=== PATIENT | male | born 1950 | race Caucasian/White ===

== ENCOUNTER 2021-02-04 00:34 | Emergency (ER) | payer MEDICARE ==
[2021-02-04 01:26] LABS: HEMOGLOBIN 13.6 gm/dl (14.0-17.5); RED BLOOD COUNT 4.65 M/UL (4.20-5.50); WHITE BLOOD COUNT 8.6 K/UL (4.5-11.0)
[2021-02-04 01:48] LABS: BUN/CREATININE RATIO 17 (0-10)
== END 2021-02-04 05:10 | disposition home or self-care (01) ==
LOC: ER1 00:34
PROVIDERS: Family Medicine
DX: E11.65 Type 2 diabetes mellitus with hyperglycemia (principal); R07.9 Chest pain, unspecified; R10.30 Lower abdominal pain, unspecified; K80.80 Other cholelithiasis without obstruction; E78.5 Hyperlipidemia, unspecified; Z95.1 Presence of aortocoronary bypass graft; Z79.82 Long term (current) use of aspirin
CPT/HCPCS: 71045; 80053; 81001; 82550; 82553; 83690; 83874; 84484; 85025; 93005; 96374; 96375; 96376; 99285; J2270; J2405

== ENCOUNTER → 2021-04-07 | Outpatient (CLI) | payer MEDICARE, OTHER | LOC: HEART 5 07:59 | DX: I25.10 Atherosclerotic heart disease of native coronary artery without angina pectoris (principal); I07.1 Rheumatic tricuspid insufficiency; I35.8 Other nonrheumatic aortic valve disorders | CPT/HCPCS: 93306 ==

== ENCOUNTER → 2021-04-14 | Outpatient (CLI) | payer MEDICARE, OTHER | LOC: HEART 5 07:42 | DX: R07.89 Other chest pain (principal); R94.39 Abnormal result of other cardiovascular function study | CPT/HCPCS: 78452; A9502; J2785 ==

== ENCOUNTER 2021-05-23 21:36 | Emergency (ER) | payer MEDICARE, OTHER | END 2021-05-24 01:26 | disposition left against medical advice (07) | LOC: ER1 21:36 | DX: Z53.21 Procedure and treatment not carried out due to patient leaving prior to being seen by health care provider (principal) | CPT/HCPCS: 93005 ==

== ENCOUNTER 2021-09-01 11:25 | Inpatient (IN) | payer MEDICARE, OTHER ==
[~2021-09-01] VITALS: Ht 175.3 cm; Wt 117.0 kg
[~2021-09-01 11:25] MED LIST: DOXYCYCLINE HY100 M2 PO
[2021-09-01 12:24] LABS: HEMOGLOBIN 15.3 gm/dl (14.0-17.5); RED BLOOD COUNT 5.15 M/UL (4.20-5.50); WHITE BLOOD COUNT 6.5 K/UL (4.5-11.0)
[2021-09-01 13:03] LABS: BUN/CREATININE RATIO 17 (0-10)
[2021-09-01] MEDS ORDERED: PROAIR DIGIHAL90 MCG INH (14:00)
[2021-09-01] MEDS ORDERED: METFORMIN HCL500 M2 PO (14:01)
[2021-09-01] MEDS ORDERED: PLAVIX75 MG PO (14:01)
[2021-09-01] MEDS ORDERED: CARVEDILOL3.125 MG PO (14:02)
[2021-09-01] MEDS ORDERED: FUROSEMIDE20 MG PO (14:02)
[2021-09-01] MEDS ORDERED: ATORVASTATIN CA80 MG PO (14:02)
[2021-09-01] MEDS ORDERED: ISOSORBIDE MONO30 MG PO (14:03)
[2021-09-01] MEDS ORDERED: ASPIRIN EC81 MG PO (14:03)
[2021-09-01] MEDS ORDERED: AMARYL2 MG PO (14:03)
[2021-09-02 04:11] LABS: HEMOGLOBIN 13.6 gm/dl (14.0-17.5); RED BLOOD COUNT 4.64 M/UL (4.20-5.50); WHITE BLOOD COUNT 4.8 K/UL (4.5-11.0)
[2021-09-02 04:51] LABS: BUN/CREATININE RATIO 22 (0-10)
[2021-09-03 01:03] LABS: ACINETOBACTER BAUMANNII Not Detected (Negative); CANDIDA ALBICANS Not Detected (Negative); CANDIDA KRUSEI Not Detected (Negative); CANDIDA TROPICALIS Not Detected (Negative); ENTEROCOCCUS Not Detected (Negative); ESCHERICHIA COLI Not Detected (Negative); HAEMOPHILUS INFLUENZAE Not Detected (Negative); KLEBSIELLA OXYTOCA Not Detected (Negative); KLEBSIELLA PNEUMONIAE Not Detected (Negative); KPC-CARBAPENEM-RESISTANCE GENE Not Detected (Negative); PROTEUS Not Detected (Negative); PSEUDOMONAS AERUGINOSA Not Detected (Negative); SERRATIA MARCESANS Not Detected (Negative); STAPHYLOCOCCUS AUREUS Not Detected (Negative); STREP AGALACTIAE (GROUP B) Not Detected (Negative); STREP PYOGENES (GROUP A) Not Detected (Negative); STREPTOCOCCUS Not Detected (Negative); mecA (METHICILLIN RESIST GENE Not Detected (Negative); vanA/B (VANCOMYCIN RESIST GENE Not Detected (Negative)
[2021-09-03 03:37] LABS: STAPHYLOCOCCUS DETECTED (Negative)
[2021-09-03 04:33] LABS: BUN/CREATININE RATIO 22 (0-10)
[2021-09-03 04:39] LABS: HEMOGLOBIN 12.7 gm/dl (14.0-17.5); RED BLOOD COUNT 4.43 M/UL (4.20-5.50)
[2021-09-03 04:40] LABS: WHITE BLOOD COUNT 6.2 K/UL (4.5-11.0)
--- NOTE | 2021-09-03 13:34 | NUR ---
CONSULT CALLED TO DR Patton IN ICU
--- NOTE | 2021-09-03 17:04 | NUR ---
AWARE OF BLOOD CULTURE RESULTS
[2021-09-04 04:32] LABS: HEMOGLOBIN 12.1 gm/dl (14.0-17.5); RED BLOOD COUNT 4.16 M/UL (4.20-5.50); WHITE BLOOD COUNT 4.9 K/UL (4.5-11.0)
[2021-09-04 04:51] LABS: BUN/CREATININE RATIO 24 (0-10)
[2021-09-04] MEDS ORDERED: PROAIR HFA8.5 GM INH (08:27)
[2021-09-04] MEDS ORDERED: DECADRON6 MG PO (08:27)
--- NOTE | 2021-09-04 08:58 | NUR ---
09/04/21 0858 ROOM AIR SATURATION 87%
== END 2021-09-04 14:40 | disposition home or self-care (01) | DRG 177 ==
LOC: ER1 11:25 → CDU 13:42 → MED SURG 4 13:42 → PROG CARE 09-02 13:18
PROVIDERS: Physician Assistant; ADMIT Internal Medicine
PROC: XW033E5 Introduction of Remdesivir Anti-infective into Peripheral Vein, Percutaneous Approach, New Technology Group 5 (ICD-10-PCS; 2021-09-01)
PROC: 8E0ZXY6 Isolation (ICD-10-PCS; 2021-09-01)
PROC: 5A09357 Assistance with Respiratory Ventilation, Less than 24 Consecutive Hours, Continuous Positive Airway Pressure (ICD-10-PCS; 2021-09-01)
PROC: 3E0333Z Introduction of Anti-inflammatory into Peripheral Vein, Percutaneous Approach (ICD-10-PCS; 2021-09-01)
PROC: XW033G5 Introduction of Sarilumab into Peripheral Vein, Percutaneous Approach, New Technology Group 5 (ICD-10-PCS; 2021-09-01)
PROC: 5A0945A Assistance with Respiratory Ventilation, 24-96 Consecutive Hours, High Flow/Velocity Cannula (ICD-10-PCS; principal; 2021-09-02)
DX: U07.1 COVID-19 (principal); J96.21 Acute and chronic respiratory failure with hypoxia; J12.82 Pneumonia due to coronavirus disease 2019; J96.01 Acute respiratory failure with hypoxia; I25.10 Atherosclerotic heart disease of native coronary artery without angina pectoris; J43.9 Emphysema, unspecified; G47.33 Obstructive sleep apnea (adult) (pediatric); I11.0 Hypertensive heart disease with heart failure; I50.9 Heart failure, unspecified; I08.2 Rheumatic disorders of both aortic and tricuspid valves; E66.01 Morbid (severe) obesity due to excess calories; E11.9 Type 2 diabetes mellitus without complications; Z79.82 Long term (current) use of aspirin; Z79.4 Long term (current) use of insulin; Z88.2 Allergy status to sulfonamides; Z23 Encounter for immunization; Z95.1 Presence of aortocoronary bypass graft; Z91.14 Patient's other noncompliance with medication regimen; Z99.81 Dependence on supplemental oxygen; Z68.36 Body mass index [BMI] 36.0-36.9, adult; Z95.5 Presence of coronary angioplasty implant and graft
CPT/HCPCS: 36415; 36600; 71045; 80048; 80053; 80202; 82550; 82553; 82803; 82962; 83036; 83605; 83735; 83874; 83880; 84100; 84484; 85025; 85027; 85652; 86140; 87040; 87077; 87150; 87186; 93005; 94640; 94664; 94760; 96374; 99285; J1100; J1650; J2543; J3370; J7030; J7050; Q9967; U0002

== ENCOUNTER → 2021-11-30 | Outpatient (CLI) | payer MEDICARE, OTHER ==
[~2021-11-30] MED LIST changes: +AMARYL2 MG PO; +ASPIRIN EC81 MG PO; +ATORVASTATIN CA80 MG PO; +CARVEDILOL3.125 MG PO; +DECADRON6 MG PO; +FUROSEMIDE20 MG PO; +ISOSORBIDE MONO30 MG PO; +METFORMIN HCL500 M2 PO; +PLAVIX75 MG PO; +PROAIR DIGIHAL90 MCG INH; +PROAIR HFA8.5 GM INH
== END ==
LOC: KOH-I 12:37
DX: R09.02 Hypoxemia (principal); R91.8 Other nonspecific abnormal finding of lung field; Z86.16 Personal history of COVID-19
CPT/HCPCS: 71250

== ENCOUNTER → 2021-11-30 | Outpatient (CLI) | payer MEDICARE | LOC: RT 13:34 | DX: R09.02 Hypoxemia (principal) | CPT/HCPCS: 36600; 82803 ==